=== PATIENT | female | born 1990 | race Caucasian/White ===

== ENCOUNTER 2019-03-18 10:18 | Emergency (ER) | payer SELFPAY, OTHER ==
[2019-03-18] MEDS: IBUPROFEN 800 MG TAB PO (11:01)
== END 2019-03-18 12:45 | disposition home or self-care (01) ==
LOC: FTE 10:18
DX: S90.111A Contusion of right great toe without damage to nail, initial encounter (principal); S60.221A Contusion of right hand, initial encounter; W01.118A Fall on same level from slipping, tripping and stumbling with subsequent striking against other sharp object, initial encounter; Y92.9 Unspecified place or not applicable
CPT/HCPCS: 29125; 73130-RT; 73630; 99283-25